=== PATIENT | female | born 1990 | race Caucasian/White ===

== ENCOUNTER 2017-05-31 10:02 | Observation (INO) | payer MEDICAID, OTHER ==
[~2017-05-31] VITALS: Ht 144.8 cm; Wt 80.6 kg
[2017-05-31] VITALS (18 sets, daily range): BP systolic 93–117; BP diastolic 47–68; PULSE 62–80; RESP 10–22; Ht 144.8 cm; Wt 80.6 kg
[2017-05-31 11:14] LABS: BASOPHIL # 0.1 10^3/ul (0.0-0.1); BASOPHILS % 0.8 % (0.0-2.0); EOSINOPHILS # 0.2 10^3/ul (0.0-0.5); EOSINOPHILS % 2.6 % (0.0-7.0); HEMATOCRIT 38.2 % (37.0-47.0); HEMOGLOBIN 12.9 g/dl (12.0-16.0); LYMPHOCYTES # 2.3 10^3/ul (0.8-2.9); LYMPHOCYTES % 29.6 % (15.0-51.0); MEAN CORPUSCULAR HEMOGLOBIN 28.7 pg (29.0-33.0); MEAN CORPUSCULAR HGB CONC 33.8 g/dl (32.0-37.0); MEAN CORPUSCULAR VOLUME 84.9 fl (82.0-101.0); MEAN PLATELET VOLUME 11.4 fl (7.4-10.4); MONOCYTE # 0.5 10^3/ul (0.3-0.9); NEUTROPHIL # 4.7 10^3/ul (1.6-7.5); NEUTROPHILS % 60.7 % (39.0-77.0); PLATELET COUNT 247 10^3/UL (140-415); RED CELL DISTRIBUTION WIDTH 13.1 % (11.5-14.5); WHITE BLOOD COUNT 7.8 10^3/ul (4.8-10.8)
[2017-05-31 11:41] LABS: ALBUMIN 4.3 g/dl (3.3-4.9); ALBUMIN/GLOBULIN RATIO 1.3; BILIRUBIN,INDIRECT 0.3 mg/dl (0-1.1); BILIRUBIN,TOTAL 0.3 mg/dl (0.2-1.3); TOTAL PROTEIN 7.6 g/dl (6.1-8.1)
[2017-05-31 11:47] LABS: CALCIUM 9.2 mg/dl (8.4-10.2); CREATININE 0.64 mg/dl (0.44-1.00); POTASSIUM 4.3 mmol/L (3.5-5.1)
[2017-05-31 12:10] LABS: INR 1.06; PROTIME 13.8 Sec (12.2-14.2); PT RATIO 1.1
[2017-05-31 12:11] LABS: PARTIAL THROMBOPLASTIN TIME 30.7 Sec (25.0-35.0)
[2017-05-31] MEDS ORDERED: ROCURONIUM 50 MG INJ ONE (13:42)
[2017-05-31] MEDS ORDERED: MIDAZOLAM 1 MG/ML 2 ML INJ ONE (13:42)
[2017-05-31] MEDS ORDERED: FENTAnyl 50 MCG/ML VIAL ONE (13:42)
[2017-05-31] MEDS ORDERED: PROPOFOL 100 ML ONE (13:42)
[2017-05-31] MEDS ORDERED: ROPIVACAINE 0.5 % 30 ML VIAL ONE (13:42)
[2017-05-31] MEDS ORDERED: ONDANSETRON 4 MG INJ ONE (14:45)
[2017-05-31] MEDS ORDERED: DEXAMETHASONE 4 MG/ML 1 ML INJ ONE (14:45)
[2017-05-31] MEDS ORDERED: KETOROLAC 30 MG INJ ONE (14:45)
[2017-05-31] MEDS ORDERED: METOCLOPRAMIDE 10 MG INJ ONE (14:45)
[2017-05-31] MEDS ORDERED: SUGAMMADEX SODIUM 200 MG/2 ML VIAL IV ONE (14:45)
[2017-05-31] MEDS ORDERED: CEFAZOLIN 1 GM INJ ONE (14:46)
--- NOTE | 2017-05-31 14:58 | SIPON ---
Date/Time of Note Date/Time of Note DATE: 05/31/17 TIME: 14:57 Operative Report Preoperative Diagnosis Symptomatic cholelithiasis Postoperative Diagnosis Same Operation/Procedure Performed Laparoscopic cholecystectomy Surgeon see signature line financial planning assistant Dr. Brenda Hodge Anesthesia: general Estimated blood loss: 0 - 10 ml's Transfusion Required none Specimen Gallbladder Grafts/Implants none Complications none ROMÁN LACEY MD May 31, 2017 14:58
[2017-05-31] MEDS ORDERED: HYDROCODONE/APAP (5/325) TAB PO PRN ×2 (15:00→17:00)
[2017-05-31] MEDS ORDERED: ACETAMINOPHEN 1000MG/100ML IV 100 ML IVPB PRN (15:00)
[2017-05-31] MEDS ORDERED: MEPERIDINE 25 MG INJ IV PRN (15:00)
[2017-05-31] MEDS ORDERED: LABETALOL HCL 20MG INJ IV PRN (15:00)
[2017-05-31] MEDS ORDERED: hydrALAzine 20 MG INJ IV PRN (15:00)
[2017-05-31] MEDS ORDERED: ONDANSETRON 4 MG INJ IV PRN ×2 (15:00)
[2017-05-31] MEDS ORDERED: METOCLOPRAMIDE 10 MG INJ IV PRN (15:00)
[2017-05-31] MEDS ORDERED: DIPHENHYDRAMINE 50 MG INJ IV PRN (15:00)
[2017-05-31] MEDS ORDERED: FENTAnyl 50 MCG/ML VIAL IV PRN ×2 (15:00)
[2017-05-31] MEDS ORDERED: morphine 2 MG INJ IV PRN (15:00)
[2017-05-31] MEDS ORDERED: HYDROmorphONE (0.2 MG/ML) 10ML SYG IV PRN ×3 (15:00)
[2017-05-31] MEDS: FENTAnyl 50 MCG/ML VIAL IV PRN ×2 (15:17→15:23)
[2017-05-31] MEDS: D5W-0.45 NACL + KCL 20 MEQ 1,000 ML IV SCH ×2 (17:09→22:26)
--- NOTE | 2017-05-31 17:58 | HP ---
DATE OF ADMISSION: 05/31/2017 CHIEF COMPLAINT: The patient is a 27-year-old female with history of symptomatic gallstone, was seen by Dr. Escobedo as an outpatient. Patient was brought into hospital today and underwent laparoscopic cholecystectomy. Patient had significant postoperative pain, therefore, patient is being admitted for further evaluation and management. Patient also has mild nausea. Denies any chest pain or shortness of breath. Denies any headache. No history of recent fever or chills. No recent history of cholecystitis. No history of fever or chills. Patient's preop urine test was negative. Patient had ultrasound of the abdomen done prior to admission, which revealed cholelithiasis and hepatic steatosis, and there was no evidence of biliary dilatation. Rest of review of systems unremarkable. PAST SURGICAL HISTORY: None. ALLERGIES: NONE. SOCIAL HISTORY: No smoking. No alcohol. FAMILY HISTORY: Noncontributory. PHYSICAL EXAMINATION: GENERAL: Patient conscious, awake, alert, fairly oriented. VITAL SIGNS: Temperature 97.9, pulse 66, respiration 18, blood pressure 116/64, O2 sat 98% on room air. HEENT: No eye discharge, redness. Extraocular movement intact. Nose is normal. NECK: Supple. No thyromegaly. Oropharynx clear. CHEST: Clear to auscultation. CVS: S1, S2 normal. No murmur. ABDOMEN: Patient is status post lap toan. EXTREMITIES: No leg edema. Pedal pulses palpable. SKIN: Without rash. NEUROLOGIC: Patient is awake, alert, fairly oriented, with no gross focal deficit. Detail examination was deferred due to recent surgery. LAB: WBC 7.8, hemoglobin 12.5, platelets 247,000. Chemistry: Sodium 140, potassium 4.3, BUN 12, creatinine 0.6, glucose 88, AST 22, ALT 40, alk phos 75. IMPRESSION: Symptomatic gallstone, status post laparoscopic cholecystectomy. PLAN: Patient admitted on medical floor. Patient will be started on clear liquid diet, which will be advanced as tolerated. For pain, patient will be given Tylenol, [place] and IV morphine depending upon severity of the pain. Will continue IV fluid and SCD for DVT prophylaxis, and Zofran for nausea and vomiting. Will continue to follow her from medical standpoint. Dictated By: Ayden Burk MD /berta/radha /Document#: [id number] MTDD
[2017-06-01] MEDS: D5W-0.45 NACL + KCL 20 MEQ 1,000 ML IV SCH ×2 (01:38→14:59)
[2017-06-01 08:00] VITALS: BP 110/65; RESP 18
[2017-06-01] MEDS ORDERED: HYDR-3498 PO (15:02)
--- NOTE | 2017-06-01 20:56 | DS ---
Date/Time of Note Date/Time of Note DATE: 06/01/17 TIME: 20:54 Discharge Summary Admission/Discharge Info Admit Date/Time May 31, 2017 at 15:01 Discharge Date/Time Jun 01, 2017 at 15:50 Discharge Diagnosis Symptomatic gallstone, status post laparoscopic cholecystectomy. Patient Condition: Stable Hx of Present Illness The patient is a 27-year-old female with history of symptomatic gallstone, was seen by Dr. Escobedo as an outpatient. Patient was brought into hospital today and underwent laparoscopic cholecystectomy. Patient had significant postoperative pain, therefore, patient is being admitted for further evaluation and management. Patient also has mild nausea. Denies any chest pain or shortness of breath. Denies any headache. No history of recent fever or chills. No recent history of cholecystitis. No history of fever or chills. Patient's preop urine test was negative. Patient had ultrasound of the abdomen done prior to admission, which revealed cholelithiasis and hepatic steatosis, and there was no evidence of biliary dilatation. Rest of review of systems unremarkable. Hospital Course Symptomatic gallstone, status post laparoscopic cholecystectomy. Patient admitted on medical floor. Patient will be started on clear liquid diet, which will be advanced as tolerated. For pain, patient will be given Tylenol, [place] and IV morphine depending upon severity of the pain. Will continue IV fluid and SCD for DVT prophylaxis, and Zofran for nausea and vomiting. Home Meds Active Scripts Hydrocodone Bit-Acetaminophen (Hydrocodone Bit-APAP) 5-325MG Tablet, 1 TAB PO Q6H Y for PAIN, #20 TAB Prov:MIREILLE SIM 06/01/17 Follow-up Plan Follow-up with Dr. Escobedo in 2 weeks Primary Care Provider Not On Staff Doctor Time spent on discharge: > 30 minutes MIREILLE SIM Jun 01, 2017 20:56
--- NOTE | 2017-06-05 15:08 | OPR ---
DATE OF OPERATION: 05/31/2017 PREOPERATIVE DIAGNOSIS: Symptomatic cholelithiasis. POSTOPERATIVE DIAGNOSIS: Symptomatic cholelithiasis. PROCEDURE: Laparoscopic cholecystectomy. ANESTHESIA: General. SURGEON: Ariel Escobedo MD [employer]: Gee Ortiz MD INDICATIONS FOR PROCEDURE: The patient is a 27-year-old female, presented with multiple previous episodes of right upper quadrant pain. An ultrasound confirmed cholelithiasis. She was counseled as to the risks versus benefits of cholecystectomy. She consented and was scheduled for surgery. OPERATIVE PROCEDURE: Patient brought to the operating theater and placed under general endotracheal tube anesthesia. The abdomen was prepped and draped in usual sterile fashion. A 2 cm incision was then made in the midline directly above the umbilicus. Subcutaneous tissue was dissected with cautery down to the anterior rectus sheath, 0 Vicryl stay sutures were placed on either side of the linea alba. The linea alba was incised and the abdomen was entered without difficulty. Bibi trocar was then placed and the abdomen was insufflated to approximately 14 mmHg with carbon dioxide. The laparoscope was introduced. Attention was directed to the right upper quadrant where a distended gallbladder was noted. The 3 accessory ports were then placed under direct vision through the lateral port sites. The gallbladder was grasped at the fundus and neck and retracted cephalad and lateral. The perineum overlying 1st medial and then the lateral aspect of the gallbladder was incised with cautery to facilitate mobilization of the triangle of Calot. With meticulous dissection, cystic duct was isolated. Two clips were placed across it distally. It was then transected with the endovascular BERNICE stapler at its junction with the neck of the gallbladder. Subsequently, the cystic artery was isolated, triply clipped and transected. The gallbladder was then dissected out of the gallbladder fossa using cautery. Prior to final transection, irrigation and inspection took place. Minimal bleeding was controlled with cautery. The gallbladder was transected. The laparoscope was moved to the 12 mm subcostal port site and the gallbladder was retrieved from the abdomen through the umbilical port site using the gallbladder retrieval bag. The Bibi trocar was then placed back into the abdomen. The abdomen was reinsufflated. The lap scope was moved back to the umbilical port site. Final irrigation and inspection took place. There was no evidence of bleeding. Three accessory ports were then removed under direct vision. Again, there was no evidence of bleeding. Finally the umbilical port site was removed. The midline umbilical fascia was then reapproximated with 0 Prolene sutures in [id number] fashion. All wounds were irrigated with Betadine and skin incisions were reapproximated with skin ita. The patient tolerated procedure well. ESTIMATED BLOOD LOSS: 20 mL. COMPLICATIONS: There were no complications. PREOPERATIVE CONDITION: The patient was transported in stable condition to the recovery room. Dictated By: Ariel Escobedo MD /berta/izzy /Document#: [id number]
== END 2017-06-01 15:50 | disposition home or self-care (01) ==
LOC: SDS 10:02 → REC 15:01 → MS1 16:17
PROVIDERS: ADMIT Surgery Surgical Oncology; ATTEND Surgery Surgical Oncology
DX: K80.00 Calculus of gallbladder with acute cholecystitis without obstruction (principal); R10.11 Right upper quadrant pain
CPT/HCPCS: 47562; 80053; 84703; 85025; 85610; 85730; 88304; J0131; J0690; J1100; J1170; J1885; J2250; J2405; J2765; J2795; J3010; J3480; Z7500; Z7512; Z7610; G0378